=== PATIENT | female | born 1995 | race African-American/Black ===

== ENCOUNTER 2017-04-19 11:37 | Emergency (ER) | payer MEDICAID, OTHER ==
[~2017-04-19] VITALS: Ht 170.2 cm; Wt 70.0 kg
[~2017-04-19 11:37] MED LIST: FERR324T4 PO; METR-1 PO; MICR1TAB PO; PREN0.01 PO
[2017-04-19 11:39] VITALS: BP 118/74; PULSE 76; RESP 20; TEMP 99; O2SAT 98
[2017-04-19] MEDS ORDERED: IBUP800T23 PO (12:32)
[2017-04-19] MEDS ORDERED: AMOX500C PO (12:32)
--- NOTE | 2017-04-19 12:32 | PD ---
HPI Chief Complaint: Oral / Dental Pain or Problem Time Seen by Provider: 12:31 Travel History International Travel<30 days: No Contact w/Intl Traveler<30days: No Traveled to known affect area: No History of Present Illness HPI 21-year-old female presents to the emergency Department with complaint of right lower wisdom tooth pain since Wednesday. The pain has been going on for a while , but worsened on Wednesday. Denies dental trauma. Called her dentist morning and was told to come to the emergency room for antibiotics. Denies fever, vomiting. Denies facial edema. Denies throat pain. Has been taking Tylenol for symptom management. Symptoms are mild in severity. No known allergies. Has no other medical complaints. No other modifying factors or associated signs and symptoms. PFSH Past Medical History Depression: Yes Diminished Hearing: No Immunizations Current: No ?: Not LMP: 03/2017 : 3 Para: 2 Social History Alcohol Use: No Tobacco Use: No Substance Use: No Allergies-Medications (Allergen,Severity, Reaction): Coded Allergies: No Known Allergies (Unverified , 04/19/17) Reported Meds & Prescriptions Reported Meds & Active Scripts Active Ibuprofen 800 Mg Tab 800 Mg PO Q6HR PRN Amoxicillin 500 Mg Cap 500 Mg PO BID 10 Days Microgestin 1 mg/20 mcg 1 mg/20 mcg Tab 1 Tab PO DAILY Flagyl (Metronidazole) 500 Mg Tab 500 Mg PO BID Ferrous Sulfate 325 Mg Tab 325 Mg PO DAILY Vit ( Plus) (Prenat Multivit/[place]/Iron/Folic Ac) Tab 1 Tab PO DAILY Review of Systems Except as stated in HPI: all other systems reviewed are Neg Physical Exam Narrative GENERAL: Well-nourished, well-developed female patient, in no acute distress; afebrile, nontoxic-appearing SKIN: Warm and dry. HEAD: Atraumatic. Normocephalic. No facial edema, erythema, tenderness on palpation. No lymphadenopathy. EYES: Pupils equal and round. No scleral icterus. No injection or drainage. ENT: Mucosa pink and moist. Airway patent. MOUTH: Mucous membranes moist, no lesions, tongue and gums appear normal. Tooth #32 with tenderness on palpation. Surrounding gingiva is without erythema , edema, drainage. No obvious abscess noted. NECK: Trachea midline. No lymphadenopathy. CARDIOVASCULAR: Regular rate. RESPIRATORY: No accessory muscle use. GASTROINTESTINAL: Flat. MUSCULOSKELETAL: No obvious deformities. No clubbing. No cyanosis. No edema. NEUROLOGICAL: Awake and alert. Oriented 3. No obvious cranial nerve deficits. Motor grossly within normal limits. Normal speech. PSYCHIATRIC: Appropriate mood and affect; insight and judgment normal. Data Data Last Documented VS Vital Signs Date Time Temp Pulse Resp B/P Pulse Ox O2 Delivery O2 Flow Rate FiO2 04/19/17 12:10 16 04/19/17 11:39 99.0 76 118/74 98 MDM Medical Decision Making Medical Screen Exam Complete: Yes Emergency Medical Condition: Yes Medical Record Reviewed: Yes Differential Diagnosis Dentalgia, dental abscess, tooth impaction Narrative Course 21-year-old female with right lower tooth #32 dentalgia. No facial edema or erythema. Patient denies fever, vomiting. Patient is afebrile and nontoxic- appearing. Instructed patient to follow up with dentist. Amoxicillin and ibuprofen prescribed for home. Instructed patient to follow up with primary care provider. Patient verbalizes understanding and agreement with treatment plan. Patient is medically cleared and stable for discharge. Discussed reasons to return to the emergency department. Patient agrees with treatment plan. The patients vital signs are stable and the patient is stable for outpatient follow-up and treatment. Patient discharged home, stable and in no acute distress. Diagnosis Primary Impression: Dentalgia Referrals: Dentist Primary Care Physician Patient Instructions: Dental Abscess (ED), Dental Caries (ED), General Instructions, Toothache (ED) Departure Forms: Tests/Procedures, Work Release Enter return to work date: Apr 21, 2017 Additional Instructions: Complete full course of antibiotics Ibuprofen or Tylenol as directed and as needed to reduce pain and inflammation Warm or cool compresses to the affected area Follow-up with dentist Follow-up with primary care provider Return to emergency department immediately with worsening of symptoms Med/Other Pt SpecificInfo: Prescription(s) given Scripts Ibuprofen 800 Mg [id number] Mg PO Q6HR PRN (PAIN) #30 TAB Ref 0 Prov:Kelly Walsh 04/19/17 Amoxicillin 500 Mg [id number] Mg PO BID 10 Days Ref 0 Prov:Kelly Walsh 04/19/17 Disposition: 01 DISCHARGE HOME Condition: Stable Kelly Walsh Apr 19, 2017 12:32
== END 2017-04-19 13:06 | disposition home or self-care (01) ==
LOC: NEPK 11:37
DX: K08.89 Other specified disorders of teeth and supporting structures (principal)
CPT/HCPCS: 99283